=== PATIENT | male | born 1955 | race Caucasian/White ===

== ENCOUNTER 2019-11-29 17:24 | Inpatient (IN) | payer MEDICARE ==
[2019-11-29] MEDS ORDERED: METHYLPREDNISOLONE SOD SUCC 125 MG/2ML VIAL IV STA (17:39)
[2019-11-29] MEDS ORDERED: SODIUM CHLORIDE 0.9% 1000ML 1,000 ML IV STA (17:39)
[2019-11-29] MEDS ORDERED: ALBUTEROL/IPRATROPIUM 3 ML NEB NEB ONE (17:45)
[2019-11-29] MEDS ORDERED: CEFTRIAXONE SOD 1 GM/NS 50 ML 50 ML IV ONE (17:45)
[2019-11-29] MEDS ORDERED: AZITHROMYCIN 500MG/NS 250 ML 250 ML IV ONE (17:45)
--- NOTE | 2019-11-29 18:02 | NUR ---
requested Albuterol treatment from RT
[2019-11-29] MEDS ORDERED: SODIUM CHLORIDE 0.9% 1000ML 1,000 ML IV ONE (18:15)
[2019-11-29 18:27] LABS: ALANINE AMINOTRANSFERASE 18 IU/L (0-55); ALBUMIN 4.6 g/dL (3.5-5.0); ALBUMIN/GLOBULIN RATIO 1.4 (0.8-2.0); ALKALINE PHOSPHATASE 93 IU/L (40-150); ANION GAP 17.7 mmol/L (8-16); BLOOD UREA NITROGEN 11 mg/dL (7-26); BUN/CREATININE RATIO 13 (6-25); CALCIUM 9.4 mg/dL (8.4-10.2); CARBON DIOXIDE 24 mmol/L (22-29); CHLORIDE 101 mmol/L (98-107); CREATINE KINASE 98 IU/L (30-200); CREATININE, SERUM 0.82 mg/dL (0.72-1.25); EST GLOMERULAR FILTRATION RATE > 60 ML/MIN (60-); GLUCOSE 106 mg/dL (74-118); MAGNESIUM 1.9 MG/DL (1.3-2.1); POTASSIUM 3.7 mmol/L (3.5-5.1); SODIUM 139 mmol/L (136-145)
--- NOTE | 2019-11-29 18:27 | Diagnostic Imaging Report ---
Examination: Single AP view of the chest. COMPARISON: None. INDICATION: Shortness of breath today IMPRESSION: 1. Lines and Tubes: None 2. Mildly hyperinflated lungs. No consolidation or effusion. 3. Cardiomediastinal silhouette is normal. Pulmonary vasculature is normal. 4. No acute bony abnormalities. Signed by: Dr. Franklyn Herrera M.D. on 11/29/2019 6:24 PM
[2019-11-29 18:29] LABS: B-TYPE NATRIURETIC PEPTIDE2 19.4 pg/mL (0-100)
[2019-11-29 18:31] LABS: INR 0.94; PARTIAL THROMBOPLASTIN TIME 27.1 seconds (23.8-35.5); PROTHROMBIN TIME 13.1 seconds (11.9-14.5)
[2019-11-29 18:50] LABS: HEMOGLOBIN 16.8 g/dL (14.0-18.0); MEAN CORPUSCULAR VOLUME 96.1 fL (81-99)
[2019-11-29 18:51] LABS: BASOPHILS % 0.4 % (0.0-1.0); EOSINOPHILS % 1.4 % (0.0-6.0); LYMPHOCYTES % 10.2 % (18.0-39.1); MEAN CORPUSCULAR HEMOGLOBIN 32.9 pg (28-32); MEAN CORPUSCULAR HGB CONC 34.3 g/dL (31-35); MONOCYTES % 9.2 % (4.4-11.3); NEUTROPHILS % 78.6 % (38.7-80.0); PLATELET COUNT 190 x10e3/uL (140-360); RED CELL DISTRIBUTION WIDTH 12.5 % (11.7-14.4)
[2019-11-29 18:52] LABS: EOSINOPHILS # (AUTO) 0.1 (0.0-0.4); MONOCYTES # (AUTO) 0.9 (0.2-0.8); NEUTROPHILS # (AUTO) 7.5 (2.1-6.9)
--- NOTE | 2019-11-29 19:24 | Emergency Department Note ---
History of Present Illnes History of Present Illness Chief Complaint: Respiratory History of Present Illness This is a 64 year old male WHO SMOKES 2 PPD PRESENTS WITH SOB THAT STARTED THIS AM, DENIES COUGH, DENIES FEVER ARRIVES VIA EMS. PT STATES HE HAS NEVER BEEN DIAGNOSED WITH COPD. . 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 Arrival Mode: [facility] EMS Treatment LEADERSHIP INTERN: IV, O2, EKG, See EMS Report Onset (how long ago): hour(s) (8) Location: CHEST Quality: SOB Radiation: Reports non-radiation Severity: moderate Onset quality: gradual Duration (how long): hour(s) (8) Timing of current episode: constant Progression: worsening Chronicity: new Context: Denies recent illness, Denies recent surgery, Denies trauma/injury Relieving factors: none Exacerbating factors: movement Associated symptoms: Reports denies other symptoms Treatments prior to arrival: none Past Medical/Family History Physician Review I have reviewed the patient's past medical and family history. Any updates have been documented here. Past Medical History Recent Fever: No Clinical Suspicion of Infectio: No New/Unexplained Change in Ment: No Past Medical History: None Social History Smoking Cessation: Current every day smoker Alcohol Use: None Any Illegal Drug Use: No Family History Family history of heart diseas: No Review of Systems Review of Systems Constitutional: Reports no symptoms EENTM: Reports no symptoms Cardiovascular: Reports no symptoms Respiratory: Reports as per HPI Gastrointestinal: Reports no symptoms Genitourinary: Reports no symptoms Musculoskeletal: Reports no symptoms Integumentary: Reports no symptoms Neurological: Reports no symptoms Psychological: Reports no symptoms Endocrine: Reports no symptoms Hematological/Lymphatic: Reports no symptoms Physical Exam Related Data Allergies: Coded Allergies: No Known Allergies (Unverified , 11/29/19) Triage Vital Signs Vital Signs Date Time Temp Pulse Resp B/P (MAP) Pulse Ox O2 Delivery O2 Flow Rate FiO2 11/29/19 17:48 98.2 126 28 162/92 96 Mask 15.0 Vital signs reviewed: Yes Physical Exam CONSTITUTIONAL Constitutional: Present well-developed, Present well-nourished HENT HENT: Present normocephalic, Present atraumatic, Present oropharynx clear/moist, Present nose normal HENT L/R: Present left ext ear normal, Present right ext ear normal EYES Eyes: Reports PERRL, Reports conjunctivae normal NECK Neck: Present ROM normal PULMONARY Pulmonary: Present effort normal, Present respiratory distress (TACHYPNIC, ), Present other (WHEEZING IN ALL FOUR TORREZ, DECREASED BREATH SOUNS BILATERAL) CARDIOVASCULAR Cardiovascular: Present regular rhythm, Present heart sounds normal, Present capillary refill normal, Present tachycardia (124) GASTROINTESTINAL Abdominal: Present soft, Present nontender, Present bowel sounds normal GENITOURINARY Genitourinary: Present exam deferred SKIN Skin: Present warm, Present dry MUSCULOSKELETAL Musculoskeletal: Present ROM normal NEUROLOGICAL Neurological: Present alert, Present oriented x 3, Present no gross motor or sensory deficits PSYCHOLOGICAL Psychological: Present mood/affect normal, Present judgement normal Results Laboratory Result Diagram: 11/29/19 1742 11/29/19 1742 Laboratory Laboratory Tests Test 11/29/19 18:31 11/29/19 17:42 White Blood Count 9.57 x10e3/uL (4.8-10.8) Red Blood Count 5.10 x10e6/uL (4.3-5.7) Hemoglobin 16.8 g/dL (14.0-18.0) Hematocrit 49.0 % (38.2-49.6) Mean Corpuscular Volume 96.1 fL (81-99) Mean Corpuscular Hemoglobin 32.9 pg (28-32) Mean Corpuscular Hemoglobin Concent 34.3 g/dL (31-35) Red Cell Distribution Width 12.5 % (11.7-14.4) Platelet Count 190 x10e3/uL (140-360) Neutrophils (%) (Auto) 78.6 % (38.7-80.0) Lymphocytes (%) (Auto) 10.2 % (18.0-39.1) Monocytes (%) (Auto) 9.2 % (4.4-11.3) Eosinophils (%) (Auto) 1.4 % (0.0-6.0) Basophils (%) (Auto) 0.4 % (0.0-1.0) Neutrophils # (Auto) 7.5 (2.1-6.9) Lymphocytes # (Auto) 1.0 (1.0-3.2) Monocytes # (Auto) 0.9 (0.2-0.8) Eosinophils # (Auto) 0.1 (0.0-0.4) Basophils # (Auto) 0.0 (0.0-0.1) Absolute Immature Granulocyte (auto 0.02 x10e3/uL (0-0.1) Prothrombin Time 13.1 seconds (11.9-14.5) Prothromb Time International Ratio 0.94 Activated Partial Thromboplast Time 27.1 seconds (23.8-35.5) D-Dimer Quantitative (PE/DVT) 0.54 ug/mLFEU (0.00-0.45) Sodium Level 139 mmol/L (136-145) Potassium Level 3.7 mmol/L (3.5-5.1) Chloride Level 101 mmol/L (98-107) Carbon Dioxide Level 24 mmol/L (22-29) Anion Gap 17.7 mmol/L (8-16) Blood Urea Nitrogen 11 mg/dL (7-26) Creatinine 0.82 mg/dL (0.72-1.25) Estimat Glomerular Filtration Rate > 60 ML/MIN (60-) BUN/Creatinine Ratio 13 (6-25) Glucose Level 106 mg/dL (74-118) Lactic Acid Level 2.7 mmol/L (0.5-2.0) Calcium Level 9.4 mg/dL (8.4-10.2) Magnesium Level 1.9 MG/DL (1.3-2.1) Total Bilirubin 1.2 mg/dL (0.2-1.2) Aspartate Amino Transf (AST/SGOT) 28 IU/L (5-34) Alanine Aminotransferase (ALT/SGPT) 18 IU/L (0-55) Alkaline Phosphatase 93 IU/L (40-150) Creatine Kinase 98 IU/L (30-200) Creatine Kinase MB 1.60 ng/mL (0-5.0) Troponin I 0.009 ng/mL (0-0.300) B-Type Natriuretic Peptide 19.4 pg/mL (0-100) Total Protein 7.8 g/dL (6.5-8.1) Albumin 4.6 g/dL (3.5-5.0) Globulin 3.2 g/dL (2.3-3.5) Albumin/Globulin Ratio 1.4 (0.8-2.0) Lab results reviewed: Yes Imaging Imaging results reviewed: Yes Impressions Procedure: [id number] DX/CHEST SINGLE (PORTABLE) Exam Date: 11/29/19 Exam Time: 9907 REPORT STATUS: Signed Examination: Single AP view of the chest. COMPARISON: None. INDICATION: Shortness of breath today IMPRESSION: 1. Lines and Tubes: None 2. Mildly hyperinflated lungs. No consolidation or effusion. 3. Cardiomediastinal silhouette is normal. Pulmonary vasculature is normal. 4. No acute bony abnormalities. Signed by: Dr. Moody Herrera M.D. on 11/29/2019 6:24 PM Dictated By: MOODY HERRERA MD 23 Transcribed By: PAWAN on 11/29/191823 COPY TO: KEITH HERZOG MD~ Procedures 12 Lead ECG Interpretation ECG Interpretation : ECG: ECG 1 Assignment Officer: Interpreted by ED physician Date: Nov 29, 2019 Time: 18:00 Rhythm: sinus tachycardia Rate: tachycardia BPM: 122 QRS axis: normal ST segments normal: Yes T waves normal: Yes Q waves: V1, V2 Clinical Impression: abnormal ECG Assessment & Plan Medical Decision Making MDM PT WITH SOB, WHEEZING CBC, CMP, EKG, CXR, CARDIAC ENZYMES, LACTIC ACID BLOOD CULTURES ORDERED TO EVAL FOR PNEUMONIA, SEPSIS, PULMONARY EDEMA, MYOCARDIAL INFARCTION ROCEPHIN1 GRAM IV ORDERED\ ZITHROMAX 500 MG IV ORDERED INITIAL LACTIC 2.7 1 LITER NS IV BOLUS ORDERED REPEAT LACTIC 3.[address] RICHARD, PL[facility] IN [facility], REQUESTS CONSULT DR LIAO Reassessment Reassessment time: 19:24 Reassessment PT FEELS BETTER AFTER ALBUTEROL NEBS. STILL WITH WHEEZING AND DECREASED BREATH SOUNDS THROUGHOUT Assessment & Plan Final Impression: (1) COPD (chronic obstructive pulmonary disease) (2) Lactic acidosis Depart Disposition: ADMITTED Last Vital Signs Date Time Temp Pulse Resp B/P (MAP) Pulse Ox O2 Delivery O2 Flow Rate FiO2 11/29/19 18:43 114 22 154/85 98 Nasal Cannula 2.0 11/29/19 17:48 98.2 Medications in the ED Methylprednisolone Sodium Succinate 125 mg ONCE STAT IV Last administered on 11/29/19at 18:20; Admin Dose 125 MG; Start 11/29/19 at 17:39; Stop 11/29/19 at 17:42; Status DC Sodium Chloride 1,000 ml @ 0 mls/hr Q0M STAT IV Last administered on 11/29/19at 18:20; Admin Dose 125 MLS/HR; Start 11/29/19 at 17:39; Stop 11/29/19 at 17:42; Status DC Albuterol/ Ipratropium 3 ml ONCE ONCE NEB Last administered on 11/29/19at 18:30; Admin Dose 3 ML; Start 11/29/19 at 17:45; Stop 11/29/19 at 17:46; Status DC Ceftriaxone Sodium 50 ml @ 100 mls/hr ONCE ONCE IV Last administered on 11/29/19at 18:21; Admin Dose 100 MLS/HR; Start 11/29/19 at 17:45; Stop 11/29/19 at 18:14; Status DC Azithromycin 250 ml @ 200 mls/hr NOW ONCE IV Last administered on 11/29/19at 18:40; Admin Dose 200 MLS/HR; Start 11/29/19 at 17:45; Stop 11/29/19 at 18:59; Status DC Sodium Chloride 1,000 ml @ 0 mls/hr Q0M ONCE IV ; Start 11/29/19 at 18:15; Stop 11/29/19 at 18:20; Status DC CASSIE BONILLA MD Nov 29, 2019 19:24
[2019-11-29 20:05] LABS: CLARITY,URINE CLEAR (CLEAR); COLOR,URINE YELLOW (YELLOW); LEUKOCYTE ESTERASE ,URINE NEGATIVE (NEGATIVE); NITRITE,URINE NEGATIVE (NEGATIVE)
[2019-11-29 20:06] LABS: BILIRUBIN,URINE NEGATIVE (NEGATIVE); KETONES,URINE NEGATIVE (NEGATIVE); PROTEIN,URINE DIPSTICK NEGATIVE (NEGATIVE); URINE UROBILINOGEN 0.2 mg/dL (0.2 - 1)
--- OUTSIDE RECORDS SUMMARY | 2019-11-29 21:32 | XMS REPORT | Continuity of Care Document ---
Author Author [facility] Organization [facility] Address [address] [place] [address] Dr. Bashir [address] [place] [id number] Phone Unavailable Care Team Providers Care Teaching Music Lessons Name Role Phone Christopher HERZOG Attphys Unavailable Problems This patient has no known problems. Allergies, Adverse Reactions, Alerts This patient has no known allergies or adverse reactions. Medications This patient has no known medications. Procedures This patient has no known procedures. Results Test Description Test Time Test Comments Results Result Comments Source CHEST SINGLE (PORTABLE) 2019-11-29 18:23:00 [facility] [address] [place] [address] Patient Name: ADALGISA MARRUFO MR #: [id number] : 1955 Age/Sex: 64/M Req #: [id number] Adm Physician: Ordered by: KEITH HERZOG MD Report #: [id number] Location: ER Room/Bed: Procedure: [id number] DX/CHEST SINGLE (PORTABLE) Exam Date: 11/29/19 Exam Time: 1733 REPORT STATUS: Signed Examination: Single AP view of the chest. COMPARISON: None. INDICATION: Shortness of breath today IMPRESSION: 1. Lines and Tubes: None 2. Mildly hyperinflated lungs. No consolidation or effusion. 3. Cardiomediastinal silhouette is nor mal. Pulmonary vasculature is normal. 4. No acute bony abnormalities. Signed by: Dr. Moody Herrera M.D. on 11/29/2019 6:24 PM Dictated By: MOODY HERRERA MD 23 Transcribed By: PAWAN on 11/29/191823 COPY TO: KEITH HERZOG MD
[2019-11-29] MEDS: SODIUM CHLORIDE 0.9% 1000ML 1,000 ML IV SCH (22:03)
[2019-11-30] VITALS (10 sets, daily range): BP systolic 112–169; BP diastolic 67–97
[2019-11-30] MEDS: METHYLPREDNISOLONE SOD SUCC 40 MG/ML VIAL 1ML IV SCH ×4 (00:54→21:00)
[2019-11-30] MEDS: ALBUTEROL/IPRATROPIUM 3 ML NEB NEB SCH ×7 (01:40→23:01)
[2019-11-30] MEDS: SODIUM CHLORIDE 0.9% 1000ML 1,000 ML IV SCH (02:30)
[2019-11-30 02:42] LABS: CREATINE KINASE MB 4.4 ng/mL (0-5.0)
[2019-11-30 07:46] LABS: EOSINOPHILS % 0.2 % (0.0-6.0); HEMATOCRIT 42.6 % (38.2-49.6); HEMOGLOBIN 14.8 g/dL (14.0-18.0); LYMPHOCYTES # (AUTO) 0.3 (1.0-3.2); LYMPHOCYTES % 5.3 % (18.0-39.1); MEAN CORPUSCULAR HGB CONC 34.7 g/dL (31-35); MEAN CORPUSCULAR VOLUME 95.1 fL (81-99); MONOCYTES % 0.6 % (4.4-11.3); NEUTROPHILS # (AUTO) 6.1 (2.1-6.9); NEUTROPHILS % 93.7 % (38.7-80.0); PLATELET COUNT 185 x10e3/uL (140-360); RED BLOOD COUNT 4.48 x10e6/uL (4.3-5.7); RED CELL DISTRIBUTION WIDTH 12.8 % (11.7-14.4)
[2019-11-30 07:58] LABS: ANION GAP 11.9 mmol/L (8-16); BLOOD UREA NITROGEN 8 mg/dL (7-26); BUN/CREATININE RATIO 11 (6-25); CALCIUM 8.7 mg/dL (8.4-10.2); CARBON DIOXIDE 24 mmol/L (22-29); CHLORIDE 108 mmol/L (98-107); CREATININE, SERUM 0.73 mg/dL (0.72-1.25); EST GLOMERULAR FILTRATION RATE > 60 ML/MIN (60-); GLUCOSE 173 mg/dL (74-118); POTASSIUM 3.9 mmol/L (3.5-5.1); SODIUM 140 mmol/L (136-145)
[2019-11-30 09:20] LABS: LYMPHOCYTES % (MANUAL) 7 % (19-48); MONOCYTES % (MANUAL) 2 % (3.4-9.0); NEUTROPHILS % (MANUAL) 91 % (40-74); PLATELET ESTIMATE ADEQUATE; PLATELET MORPHOLOGY COMMENT NORMAL; RBC MORPHOLOGY COMMENT NORMAL
[2019-11-30] MEDS ORDERED: ZOLPIDEM TARTRATE 5 MG TAB PO PRN (09:30)
--- NOTE | 2019-11-30 11:03 | Diagnostic Imaging Report ---
EXAM: CT Chest WITHOUT intravenous contrast 11/30/2019 10:35 AM INDICATION: COPD, shortness of breath COMPARISON: Chest radiograph of 11/29/2019 TECHNIQUE: Chest was scanned utilizing a multidetector helical scanner from the lung apex through the level of the adrenal glands without administration of IV contrast. Coronal and sagittal reformations were obtained. Routine protocol was performed. IV CONTRAST: None RADIATION DOSE: Total DLP: 478 mGy*cm. Dose modulation, iterative reconstruction, and/or weight based adjustment of the mA/kV was utilized to reduce the radiation dose to as low as reasonably achievable. COMPLICATIONS: None FINDINGS: LINES/ TUBES: None. LUNGS AND AIRWAYS: The central airways are patent. Mild upper lobe predominant centrilobular emphysema. No focal consolidation or pulmonary edema. 5 mm left lower lobe calcified granuloma. 4 mm peripheral left lower lobe pulmonary nodule. PLEURA: The pleural spaces are clear. HEART AND MEDIASTINUM: The thyroid gland is normal. No mediastinal, hilar or axillary lymphadenopathy. The heart is normal in size.. There is no pericardial effusion. Scattered atherosclerotic calcifications of the thoracic aorta and coronary arteries. UPPER ABDOMEN: 1 cm right hepatic hypodensity and subcentimeter left hepatic hypodensity, likely cysts. No acute findings in the upper abdomen. BONES: No acute osseous injury. No suspicious lytic or blastic lesions. SOFT TISSUES: Unremarkable. IMPRESSION: No focal pneumonia or pulmonary edema. Mild upper lobe predominant centrilobular emphysema. 4 mm peripheral left lower lobe pulmonary nodule. If the patient is low risk, no further imaging follow-up is required. If the patient is high risk, chest CT at 12 months is optional. Signed by: Matthew Sandhu MD on 11/30/2019 10:59 AM
--- NOTE | 2019-11-30 11:56 | Consultation ---
DATE OF CONSULTATION: Pulmonary Critical Care Consultation CHIEF COMPLAINT: Dyspnea and cough. HISTORY OF PRESENT ILLNESS: The patient is a 64-year-old man. He is a lifelong smoker. He had an episode of bronchitis in February of this year. He received some inhalers. He now complains of recurrent cough and dyspnea. He went to an urgent care and was subsequently referred to the ER. He was found to have wheezing and dyspnea. He received Solu-Medrol and nebulizers with some improvement. PAST MEDICAL HISTORY: 1. No prior heart disease. 2. No prior documented COPD, although the patient does have an inhaler that he uses at home. SOCIAL HISTORY: The patient is a lifelong smoker. He is not a drinker. FAMILY HISTORY: Noncontributory. ALLERGIES: NO KNOWN DRUG ALLERGIES. PHYSICAL EXAMINATION: VITAL SIGNS: The patient is afebrile. HEENT: Shows no facial swelling or erythema. LYMPHATIC: Shows no submandibular, cervical, or supraclavicular adenopathy. CARDIAC: Reveals regular rate and rhythm with normal S1 and S2. LUNGS: Auscultation of lungs reveals a prolonged expiratory phase bilaterally. There is some wheezing. There are few crackles at the bases. ABDOMEN: Soft and nontender. There is no rebound or guarding. EXTREMITIES: Show no leg edema or calf tenderness. There is no cyanosis or clubbing. SKIN: Shows no rashes. NEUROLOGICAL: Shows no focal abnormalities. LABORATORY DATA: White blood cell count is 6.4 and hemoglobin is 14.8. The platelet count is 185. The BUN to creatinine ratio is 8 to 0.73 and the other electrolytes are within normal limits. The lactic acid is 2. RADIOGRAPHIC DATA: The patient has hyperinflated lung garcia. IMPRESSION: 1. Chronic obstructive pulmonary disease with acute exacerbation, present on admission. 2. Mild protein-calorie malnutrition. PLAN: 1. Begin Symbicort twice daily. The patient should also continue nebulizer treatments. 2. Taper Solu-Medrol. 3. Antibiotics. 4. CT scan of chest. 5. Smoking cessation. 6. Nutritional counseling to avoid weight loss. MD GEORGE Vera/LUIS /[id number]
[2019-11-30] MEDS: BUDESONIDE/FORMOTEROL 160/4.5MCG INHALER INH SCH (19:40)
[2019-11-30] MEDS ORDERED: CEFTRIAXONE SOD 1 GM/NS 50 ML 50 ML IV ONE (20:48)
[2019-11-30] MEDS ORDERED: CEFTRIAXONE SOD 1 GM VIAL IV SCH (21:00)
[2019-11-30] MEDS ORDERED: AZITHROMYCIN 250 MG TAB PO SCH (21:00)
[2019-12-01] VITALS: BP 126/68
[2019-12-01] MEDS: ALBUTEROL/IPRATROPIUM 3 ML NEB NEB SCH ×4 (03:30→15:50)
[2019-12-01 04:00] VITALS: BP 113/58
[2019-12-01 05:39] LABS: BASOPHILS % 0.1 % (0.0-1.0); HEMATOCRIT 38.7 % (38.2-49.6); HEMOGLOBIN 13.8 g/dL (14.0-18.0); LYMPHOCYTES # (AUTO) 0.4 (1.0-3.2); LYMPHOCYTES % 4.5 % (18.0-39.1); MEAN CORPUSCULAR HEMOGLOBIN 34.7 pg (28-32); MEAN CORPUSCULAR HGB CONC 35.7 g/dL (31-35); MEAN CORPUSCULAR VOLUME 97.2 fL (81-99); MONOCYTES # (AUTO) 0.2 (0.2-0.8); MONOCYTES % 2.2 % (4.4-11.3); NEUTROPHILS # (AUTO) 8.9 (2.1-6.9); NEUTROPHILS % 92.9 % (38.7-80.0); PLATELET COUNT 156 x10e3/uL (140-360); RED BLOOD COUNT 3.98 x10e6/uL (4.3-5.7); RED CELL DISTRIBUTION WIDTH 13.2 % (11.7-14.4)
[2019-12-01 06:11] LABS: ANION GAP 11.2 mmol/L (8-16); BLOOD UREA NITROGEN 12 mg/dL (7-26); BUN/CREATININE RATIO 16 (6-25); CALCIUM 8.8 mg/dL (8.4-10.2); CARBON DIOXIDE 24 mmol/L (22-29); CHLORIDE 108 mmol/L (98-107); CREATININE, SERUM 0.76 mg/dL (0.72-1.25); EST GLOMERULAR FILTRATION RATE > 60 ML/MIN (60-); GLUCOSE 151 mg/dL (74-118); POTASSIUM 4.2 mmol/L (3.5-5.1); SODIUM 139 mmol/L (136-145)
[2019-12-01 07:25] VITALS: BP 128/86
[2019-12-01 07:26] VITALS: BP 128/86
[2019-12-01] MEDS: BUDESONIDE/FORMOTEROL 160/4.5MCG INHALER INH SCH (07:26)
[2019-12-01] MEDS: METHYLPREDNISOLONE SOD SUCC 40 MG/ML VIAL 1ML IV SCH (08:02)
[2019-12-01 08:13] LABS: ANISOCYTOSIS SLIGHT; LYMPHOCYTES % (MANUAL) 6 % (19-48); MONOCYTES % (MANUAL) 4 % (3.4-9.0); NEUTROPHILS % (MANUAL) 90 % (40-74); PLATELET ESTIMATE ADEQUATE; PLATELET MORPHOLOGY COMMENT NORMAL; RBC MORPHOLOGY COMMENT ABNORMAL
[2019-12-01] MEDS ORDERED: FAMOTIDINE 20 MG TAB PO SCH (09:00)
--- NOTE | 2019-12-01 10:15 | NUR ---
RECEIVED PT FROM [facility]. PT'S VITALS WNL. PT DENIES NEEDS AT THIS TIME.
[2019-12-01 12:43] VITALS: BP 123/99
--- NOTE | 2019-12-01 14:52 | Progress Note ---
DATE: SUBJECTIVE: The patient feels better. He has less dyspnea and less cough. PHYSICAL EXAMINATION: VITAL SIGNS: The patient is afebrile. The vital signs are stable. The blood pressure is 123/99, saturation is 94% on 2 L and the pulse is 71. HEENT: Shows no facial swelling or erythema. LYMPHATIC: Shows no submandibular, cervical, or supraclavicular adenopathy. CARDIAC: Reveals regular rate and rhythm with normal S1, S2. LUNGS: Auscultation of lungs reveals rhonchorous breath sounds bilaterally. There is no wheezing. ABDOMEN: Soft and nontender. There is no rebound or guarding. EXTREMITIES: Shows no leg edema or calf tenderness. There is no cyanosis or clubbing. SKIN: Shows no rashes. NEUROLOGICAL: Shows no focal abnormalities. RADIOGRAPHIC DATA: Chest CT shows centrilobular emphysema, there is 4 mm peripheral nodule. IMPRESSION: 1. Chronic obstructive pulmonary disease with acute exacerbation, present on admission. 2. Solitary pulmonary nodule, measuring 4 mm. 3. Mild protein-calorie malnutrition. PLAN: 1. The patient can be discharged home. 2. He should have a maintenance inhaler twice a day along with a rescue inhaler and a nebulizer. 3. Smoking cessation. 4. He will need a repeat CT scan again in one year to follow the nodule. 5. The patient should follow up in 1 to 2 weeks. Jarocho Calloway MD LM/MODL /[id number]
[2019-12-01 16:34] VITALS: BP 153/73
[2019-12-01] MEDS ORDERED: ALBUTEROL S5 MG/1 ML NEB (17:21)
[2019-12-01] MEDS ORDERED: DOXYCYCLINE MO100 MG PO (17:21)
[2019-12-01] MEDS ORDERED: SYMBICORT 16010.2 GM IH (17:21)
--- NOTE | 2019-12-01 17:53 | Discharge Summary ---
PRIMARY CARE PHYSICIAN: The patient does not have a primary care physician. ADMITTING DIAGNOSES: 1. Acute exacerbation of chronic obstructive pulmonary disease. 2. Lactic acidosis. DISCHARGE DIAGNOSES: 1. Acute exacerbation of chronic obstructive pulmonary disease. 2. Lactic acidosis. BRIEF HISTORY: Mr. Winters is a 64-year-old gentleman presenting with shortness of breath and wheezing and elevated lactic acid level with no other evidence of sepsis. HOSPITAL COURSE: The patient was admitted to the floor, started on Zithromax and Rocephin along with Solu-Medrol and neb treatments. The patient improved overnight, was having good O2 sats 94% on room air, was ambulating in the hallway. Still had some end expiratory wheezing with forced expiration and a hacking cough. The patient was discharged home to continue with Symbicort two puffs q.12 hours, albuterol HFA as a rescue inhaler two puffs q.4 hours as needed. He was given a script for nebulizer, albuterol solution for the nebulizer as well as Nicoderm patches and doxycycline 100 mg twice daily. He will follow up with Dr. Calloway, Pulmonology within two weeks. MD SUSANA Leblanc/LUIS /[id number]
== END 2019-12-01 17:53 | disposition home or self-care (01) | DRG 191 ==
LOC: ER 17:54 → ERHOLD 21:27 → IMCU 11-30 01:37 → OBSVTOIN 11-30 13:35 → MED/SURG 12-01 10:15
PROVIDERS: ADMIT Internal Medicine; ATTEND Internal Medicine
DX: J44.1 Chronic obstructive pulmonary disease with (acute) exacerbation (principal); E87.2 Acidosis; E44.1 Mild protein-calorie malnutrition; F17.210 Nicotine dependence, cigarettes, uncomplicated; R91.1 Solitary pulmonary nodule; Z11.59 Encounter for screening for other viral diseases
CPT/HCPCS: 36415; 71045; 71250; 80048; 80053; 81001; 82103; 82550; 82553; 83605; 83735; 83880; 84484; 85025; 85379; 85610; 85730; 87040; 87086; 93306; 94640; 99284; G0378; J0456; J0696; J2920; J2930; J7030

== ENCOUNTER → 2021-01-30 | Outpatient (CLI) | payer MEDICARE ==
[~2021-01-30] MED LIST: ALBUTEROL S5 MG/1 ML NEB; DOXYCYCLINE MO100 MG PO; SYMBICORT 16010.2 GM IH
== END ==
LOC: CT 09:32
PROVIDERS: ATTEND Internal Medicine
DX: R91.1 Solitary pulmonary nodule (principal)
CPT/HCPCS: 71250

== ENCOUNTER 2022-02-15 01:06 | Inpatient (IN) | payer MEDICARE ==
[~2022-02-15] VITALS: Ht 177.8 cm; Wt 70.3 kg
[2022-02-15] VITALS (7 sets, daily range): BP systolic 122–153; BP diastolic 67–77
[2022-02-15 02:02] LABS: BASOPHILS % 0.5 % (0.0-1.0); EOSINOPHILS # (AUTO) 0.1 (0.0-0.4); EOSINOPHILS % 0.9 % (0.0-6.0); HEMATOCRIT 44.8 % (38.2-49.6); HEMOGLOBIN 14.9 g/dL (14.0-18.0); LYMPHOCYTES # (AUTO) 0.7 (1.0-3.2); LYMPHOCYTES % 9.6 % (18.0-39.1); MEAN CORPUSCULAR HEMOGLOBIN 32.3 pg (28-32); MEAN CORPUSCULAR HGB CONC 33.3 g/dL (31-35); MEAN CORPUSCULAR VOLUME 97.2 fL (81-99); MONOCYTES # (AUTO) 0.6 (0.2-0.8); MONOCYTES % 7.6 % (4.4-11.3); NEUTROPHILS # (AUTO) 6.2 (2.1-6.9); NEUTROPHILS % 81.1 % (38.7-80.0); PLATELET COUNT 201 x10e3/uL (140-360); RED BLOOD COUNT 4.61 x10e6/uL (4.3-5.7); RED CELL DISTRIBUTION WIDTH 12.3 % (11.7-14.4)
[2022-02-15 02:07] LABS: ALBUMIN/GLOBULIN RATIO 1.1 (0.8-2.0); ANION GAP 15.5 mmol/L (8-16); CREATININE, SERUM 0.77 mg/dL (0.72-1.25); POTASSIUM 3.5 mmol/L (3.5-5.1)
[2022-02-15] MEDS ORDERED: ALBUTEROL SULF 0.083% NEB SOLN 3 ML NEB NEB STA (03:29)
[2022-02-15] MEDS ORDERED: IPRATROPIUM BROMIDE 0.02% 2.5 ML NEB NEB ONE (03:30)
[2022-02-15] MEDS: METHYLPREDNISOLONE SOD SUCC 125 MG/2ML VIAL IV SCH ×3 (06:06→22:09)
[2022-02-15] MEDS: ALBUTEROL/IPRATROPIUM 3 ML NEB NEB SCH ×5 (07:38→22:17)
[2022-02-15] MEDS ORDERED: SODIUM CHLORIDE 0.9% 250ML 250 ML ONE (08:51)
[2022-02-15] MEDS: BUDESONIDE/FORMOTEROL 160/4.5MCG INHALER INH SCH ×2 (09:00→19:47)
[2022-02-16] MEDS: ALBUTEROL/IPRATROPIUM 3 ML NEB NEB SCH ×6 (02:24→23:10)
[2022-02-16 06:08] LABS: BASOPHILS % 0.1 % (0.0-1.0); HEMATOCRIT 41.2 % (38.2-49.6); HEMOGLOBIN 14.2 g/dL (14.0-18.0); LYMPHOCYTES # (AUTO) 0.4 (1.0-3.2); LYMPHOCYTES % 4.5 % (18.0-39.1); MEAN CORPUSCULAR HEMOGLOBIN 31.6 pg (28-32); MEAN CORPUSCULAR HGB CONC 34.5 g/dL (31-35); MEAN CORPUSCULAR VOLUME 91.8 fL (81-99); MONOCYTES # (AUTO) 0.3 (0.2-0.8); NEUTROPHILS # (AUTO) 8.3 (2.1-6.9); NEUTROPHILS % 91.7 % (38.7-80.0); PLATELET COUNT 215 x10e3/uL (140-360); RED BLOOD COUNT 4.49 x10e6/uL (4.3-5.7); RED CELL DISTRIBUTION WIDTH 12.9 % (11.7-14.4)
[2022-02-16] MEDS: METHYLPREDNISOLONE SOD SUCC 125 MG/2ML VIAL IV SCH ×3 (06:12→21:36)
[2022-02-16 06:41] LABS: ANION GAP 13.6 mmol/L (8-16); CALCIUM 9.4 mg/dL (8.4-10.2); CREATININE, SERUM 0.76 mg/dL (0.72-1.25); POTASSIUM 3.6 mmol/L (3.5-5.1)
[2022-02-16] MEDS: BUDESONIDE/FORMOTEROL 160/4.5MCG INHALER INH SCH ×2 (07:20→19:35)
[2022-02-16 08:22] VITALS: BP 116/69
[2022-02-16 11:38] VITALS: BP 126/72
[2022-02-16 16:04] VITALS: BP 132/67
[2022-02-16 20:00] VITALS: BP_SYST 132; BP_SYST 139; BP_DIAS 67; BP_DIAS 77
[2022-02-17] VITALS: BP 151/96
[2022-02-17] MEDS: ALBUTEROL/IPRATROPIUM 3 ML NEB NEB SCH ×3 (03:30→09:52)
[2022-02-17] MEDS: METHYLPREDNISOLONE SOD SUCC 125 MG/2ML VIAL IV SCH (05:30)
[2022-02-17] MEDS: BUDESONIDE/FORMOTEROL 160/4.5MCG INHALER INH SCH (07:25)
[2022-02-17 08:03] VITALS: BP 135/77
[2022-02-17 09:23] VITALS: BP 135/77
[2022-02-17] MEDS ORDERED: PREDNISONE20 MG PO (10:14)
[2022-02-17] MEDS ORDERED: LEVOFLOXACIN250 MG PO (10:14)
[2022-02-17 11:30] VITALS: BP 140/76
== END 2022-02-17 12:05 | disposition home or self-care (01) | DRG 192 ==
LOC: ER 01:25 → OBSVTOIN 03:32 → ERHOLD 03:32 → MED/SURG3 05:14
PROVIDERS: ADMIT Internal Medicine; ATTEND Internal Medicine
DX: J44.1 Chronic obstructive pulmonary disease with (acute) exacerbation (principal); R09.02 Hypoxemia; I10 Essential (primary) hypertension
CPT/HCPCS: 36415; 71045; 80048; 80053; 83880; 84484; 85025; 93005; 94640; 94664; 94799; 99284; J0696; J2930; J7050

== ENCOUNTER → 2022-06-10 | Day surgery (SDC) | payer MEDICARE ==
[2022-06-03 10:04] LABS: BASOPHILS # (AUTO) 0.1 (0.0-0.1); BASOPHILS % 0.7 % (0.0-1.0); EOSINOPHILS # (AUTO) 0.3 (0.0-0.4); HEMATOCRIT 41.8 % (38.2-49.6); HEMOGLOBIN 14.3 g/dL (14.0-18.0); LYMPHOCYTES % 14.3 % (18.0-39.1); MEAN CORPUSCULAR HEMOGLOBIN 31.2 pg (28-32); MEAN CORPUSCULAR HGB CONC 34.2 g/dL (31-35); MEAN CORPUSCULAR VOLUME 91.3 fL (81-99); MONOCYTES # (AUTO) 0.5 (0.2-0.8); MONOCYTES % 7.1 % (4.4-11.3); NEUTROPHILS % 73.6 % (38.7-80.0); PLATELET COUNT 255 x10e3/uL (140-360); RED BLOOD COUNT 4.58 x10e6/uL (4.3-5.7); RED CELL DISTRIBUTION WIDTH 12.9 % (11.7-14.4)
[~2022-06-10] MED LIST changes: +ATORVASTATIN CA20 MG PO; +FENTANYL CITRATE/PF 100MCG/2 ML INJ ONE; +HYOSCYAMINE SULFATE 0.5 MG/ML INJ ONE; +LACTATED RINGER'S 1,000 ML ONE; +LEVOFLOXACIN250 MG PO; +LIDOCAINE HCL 2% LOCAL INJ 5 ML SDV VIAL INJ ONE; +POVIDONE IODINE 0.05% 0.05 % ML PO ONE; +PREDNISONE20 MG PO; +PROPOFOL IV EMULSION 10 MG/ML 20 ML VIAL ONE
[2022-06-10 13:15] VITALS: BP 106/69
== END | disposition home or self-care (01) ==
LOC: OR 08:44
PROVIDERS: ATTEND Internal Medicine Gastroenterology
DX: C18.7 Malignant neoplasm of sigmoid colon (principal); D12.8 Benign neoplasm of rectum; K64.8 Other hemorrhoids; Z71.3 Dietary counseling and surveillance; J44.9 Chronic obstructive pulmonary disease, unspecified; E78.00 Pure hypercholesterolemia, unspecified; R03.0 Elevated blood-pressure reading, without diagnosis of hypertension; Z71.89 Other specified counseling; F17.210 Nicotine dependence, cigarettes, uncomplicated; Z71.6 Tobacco abuse counseling; Z01.810 Encounter for preprocedural cardiovascular examination; Z01.812 Encounter for preprocedural laboratory examination; Z79.899 Other long term (current) drug therapy
CPT/HCPCS: 36415; 45380; 45385; 85025; 88305; 93005; J1980; J2001; J2704; J3010; J7121; 45378

== ENCOUNTER → 2022-06-11 | Outpatient (CLI) | payer MEDICARE ==
[~2022-06-11] MED LIST changes: +DIATRIZOATE MEGL/DIATRIZOA SOD 30 ML BTL PO ONE; -FENTANYL CITRATE/PF 100MCG/2 ML INJ ONE; -HYOSCYAMINE SULFATE 0.5 MG/ML INJ ONE; +IOPAMIDOL 610MG/1ML 300 MG/ML VIAL IV ONE; -LACTATED RINGER'S 1,000 ML ONE; -LIDOCAINE HCL 2% LOCAL INJ 5 ML SDV VIAL INJ ONE; -POVIDONE IODINE 0.05% 0.05 % ML PO ONE; -PROPOFOL IV EMULSION 10 MG/ML 20 ML VIAL ONE
[2022-06-11 13:20] LABS: CREATININE, SERUM 0.91 mg/dL (0.72-1.25)
== END ==
LOC: CT 12:28
PROVIDERS: ATTEND Internal Medicine Gastroenterology
DX: K63.89 Other specified diseases of intestine (principal)
CPT/HCPCS: 36415; 74177; 82565; 84520; Q9963; Q9967

== ENCOUNTER 2022-07-15 09:00 | Inpatient (IN) | payer MEDICARE ==
[2022-07-12 10:19] LABS: BASOPHILS # (AUTO) 0.1 (0.0-0.1); BASOPHILS % 0.9 % (0.0-1.0); EOSINOPHILS # (AUTO) 0.2 (0.0-0.4); EOSINOPHILS % 2.6 % (0.0-6.0); HEMATOCRIT 44.5 % (38.2-49.6); LYMPHOCYTES # (AUTO) 0.9 (1.0-3.2); LYMPHOCYTES % 14.8 % (18.0-39.1); MEAN CORPUSCULAR HEMOGLOBIN 31.7 pg (28-32); MEAN CORPUSCULAR HGB CONC 33.7 g/dL (31-35); MEAN CORPUSCULAR VOLUME 94.1 fL (81-99); MONOCYTES # (AUTO) 0.5 (0.2-0.8); MONOCYTES % 8.2 % (4.4-11.3); NEUTROPHILS # (AUTO) 4.2 (2.1-6.9); NEUTROPHILS % 71.8 % (38.7-80.0); PLATELET COUNT 193 x10e3/uL (140-360); RED BLOOD COUNT 4.73 x10e6/uL (4.3-5.7); RED CELL DISTRIBUTION WIDTH 13.2 % (11.7-14.4)
[2022-07-12 10:38] LABS: ALBUMIN/GLOBULIN RATIO 1.3 (0.8-2.0); ANION GAP 10.9 mmol/L (8-16); CALCIUM 9.2 mg/dL (8.4-10.2); CREATININE, SERUM 0.81 mg/dL (0.72-1.25); POTASSIUM 3.9 mmol/L (3.5-5.1)
[2022-07-15] VITALS (20 sets, daily range): BP systolic 139–159; BP diastolic 66–89; PULSE 67–84; RESP 8–21; TEMP 98.5–100.1; O2SAT 91–98
[~2022-07-15] VITALS: Ht 177.8 cm; Wt 68.0 kg
[~2022-07-15 09:00] MED LIST changes: -DIATRIZOATE MEGL/DIATRIZOA SOD 30 ML BTL PO ONE; -IOPAMIDOL 610MG/1ML 300 MG/ML VIAL IV ONE; +LACTATED RINGER'S 1,000 ML ONE
[2022-07-15] MEDS ORDERED: ROPIVACAINE 246.25 MG, EPINEPHRINE HCL 1:1000 1ML 0.5 MG, CLONIDINE HCL 0.08 MG, KETORO... INJ ONE ×5 (09:30)
[2022-07-15] MEDS ORDERED: MINERAL OIL STERILE 10ML VIAL ONE (09:49)
[2022-07-15] MEDS ORDERED: ACETAMINOPHEN 1000 MG/100 ML 100 ML IV ONE (09:53)
[2022-07-15] MEDS ORDERED: SUGAMMADEX SODIUM 200 MG/2 ML VIAL IV ONE (10:02)
[2022-07-15] MEDS ORDERED: FENTANYL CITRATE/PF 100MCG/2 ML INJ ONE ×2 (11:34→13:41)
[2022-07-15] MEDS ORDERED: KETOROLAC TROMETHAMINE 30 MG/ML VIAL ONE (12:22)
[2022-07-15] MEDS ORDERED: DEXAMETHASONE SOD PHOS INJ 4 MG/ML SDV ONE (12:22)
[2022-07-15] MEDS ORDERED: LIDOCAINE HCL 2% LOCAL INJ 5 ML SDV VIAL INJ ONE (12:22)
[2022-07-15] MEDS ORDERED: PROPOFOL IV EMULSION 10 MG/ML 20 ML VIAL ONE (12:22)
[2022-07-15] MEDS ORDERED: NEOSTIGMINE 1 MG/ML 10ML VIAL ONE (12:22)
[2022-07-15] MEDS ORDERED: GLYCOPYRROLATE INJ 0.2 MG/ML VIAL ONE (12:22)
[2022-07-15] MEDS ORDERED: SEVOFLURANE INHAL SOLN 250 ML PEN BTL ONE (12:22)
[2022-07-15] MEDS ORDERED: ROCURONIUM BROMIDE 10 MG/ML 5ML VIAL IV ONE (12:22)
[2022-07-15] MEDS ORDERED: POVIDONE IODINE 0.05% 0.05 % ML PO ONE (12:22)
[2022-07-15] MEDS ORDERED: ONDANSETRON HCL INJ 2MG/ML 2ML 2 MG/ML VIAL ONE (12:22)
[2022-07-15] MEDS ORDERED: ROPIVACAINE 0.5% 5 MG/ML 30 ML SDV ONE (12:59)
[2022-07-15] MEDS ORDERED: FENTANYL CITRATE/PF 100MCG/2 ML INJ IV ONE (13:42)
[2022-07-15] MEDS ORDERED: ONDANSETRON HCL INJ 2MG/ML 2ML 2 MG/ML VIAL IV PRN (13:45)
[2022-07-15] MEDS ORDERED: HYDROMORPHONE 1MG/1ML INJ IV ONE (14:05)
[2022-07-15] MEDS ORDERED: HYDRALAZINE HCL 20 MG/ML VIAL ONE (14:30)
[2022-07-15] MEDS ORDERED: HYDRALAZINE HCL 20 MG/ML VIAL IV ONE (14:31)
[2022-07-15] MEDS: SODIUM CHLORIDE 0.9% 1000ML 1,000 ML IV SCH (16:38)
[2022-07-15] MEDS: ACETAMINOPHEN 1000 MG/100 ML IV PRN ×2 (16:38→17:09)
[2022-07-15] MEDS: HYDROMORPHONE 1MG/1ML INJ IV PRN ×4 (16:38→20:51)
[2022-07-15] MEDS: SODIUM CHLORIDE 0.9% 250ML IRRIG IR SCH ×2 (16:52→21:44)
[2022-07-16] VITALS (48 sets, daily range): BP systolic 114–172; BP diastolic 59–114; PULSE 60–88; RESP 9–21; TEMP 98.1–100; O2SAT 89–98
[2022-07-16] MEDS: HYDROMORPHONE 1MG/1ML INJ IV PRN ×4 (00:24→22:32)
[2022-07-16] MEDS: ACETAMINOPHEN 1000 MG/100 ML IV PRN (01:34)
[2022-07-16] MEDS: SODIUM CHLORIDE 0.9% 250ML IRRIG IR SCH ×7 (01:48→21:34)
[2022-07-16] MEDS: SODIUM CHLORIDE 0.9% 1000ML 1,000 ML IV SCH ×2 (03:38→15:32)
[2022-07-16] MEDS: ALBUTEROL/IPRATROPIUM 3 ML NEB NEB PRN ×3 (07:35→19:25)
[2022-07-16 09:31] LABS: HEMATOCRIT 42.4 % (38.2-49.6); HEMOGLOBIN 14.1 g/dL (14.0-18.0); LYMPHOCYTES # (AUTO) 0.7 (1.0-3.2); LYMPHOCYTES % 6.8 % (18.0-39.1); MEAN CORPUSCULAR HEMOGLOBIN 31.5 pg (28-32); MEAN CORPUSCULAR HGB CONC 33.3 g/dL (31-35); MEAN CORPUSCULAR VOLUME 94.6 fL (81-99); MONOCYTES # (AUTO) 0.9 (0.2-0.8); MONOCYTES % 8.6 % (4.4-11.3); NEUTROPHILS # (AUTO) 8.3 (2.1-6.9); NEUTROPHILS % 84.3 % (38.7-80.0); PLATELET COUNT 167 x10e3/uL (140-360); RED BLOOD COUNT 4.48 x10e6/uL (4.3-5.7); RED CELL DISTRIBUTION WIDTH 13.6 % (11.7-14.4)
[2022-07-16 09:53] LABS: ANION GAP 13.4 mmol/L (8-16); CALCIUM 8.6 mg/dL (8.4-10.2); CREATININE, SERUM 0.83 mg/dL (0.72-1.25); POTASSIUM 4.4 mmol/L (3.5-5.1)
[2022-07-17] VITALS (22 sets, daily range): BP systolic 135–176; BP diastolic 77–105; PULSE 71–117; RESP 13–23; TEMP 97.7–101.1; O2SAT 91–98
[2022-07-17] MEDS: SODIUM CHLORIDE 0.9% 250ML IRRIG IR SCH ×6 (01:45→21:16)
[2022-07-17] MEDS: SODIUM CHLORIDE 0.9% 1000ML 1,000 ML IV SCH ×3 (03:48→18:38)
[2022-07-17] MEDS: HYDRALAZINE HCL 20 MG/ML VIAL IV PRN ×2 (06:47→16:09)
[2022-07-17] MEDS: ALBUTEROL/IPRATROPIUM 3 ML NEB NEB PRN ×2 (07:23→18:22)
[2022-07-17] MEDS: NICOTINE 21 MG/EA PATCH TOP SCH (10:40)
[2022-07-17 12:11] LABS: BASOPHILS % 0.4 % (0.0-1.0); EOSINOPHILS % 0.1 % (0.0-6.0); HEMATOCRIT 45.7 % (38.2-49.6); HEMOGLOBIN 15.5 g/dL (14.0-18.0); LYMPHOCYTES # (AUTO) 0.9 (1.0-3.2); LYMPHOCYTES % 8.7 % (18.0-39.1); MEAN CORPUSCULAR HEMOGLOBIN 31.6 pg (28-32); MEAN CORPUSCULAR HGB CONC 33.9 g/dL (31-35); MEAN CORPUSCULAR VOLUME 93.1 fL (81-99); MONOCYTES # (AUTO) 0.8 (0.2-0.8); MONOCYTES % 8.3 % (4.4-11.3); NEUTROPHILS # (AUTO) 8.2 (2.1-6.9); PLATELET COUNT 189 x10e3/uL (140-360); RED BLOOD COUNT 4.91 x10e6/uL (4.3-5.7); RED CELL DISTRIBUTION WIDTH 13.2 % (11.7-14.4)
[2022-07-17 12:32] LABS: ANION GAP 18.7 mmol/L (8-16); CREATININE, SERUM 0.7 mg/dL (0.72-1.25); POTASSIUM 3.7 mmol/L (3.5-5.1)
[2022-07-17] MEDS ORDERED: ACETAMINOPHEN 325 MG SUPP PR PRN (16:15)
[2022-07-17] MEDS ORDERED: KETOROLAC TROMETHAMINE 30 MG/ML VIAL IM PRN (16:45)
[2022-07-17] MEDS ORDERED: HYDRALAZINE HCL 20 MG/ML VIAL IV PRN (19:30)
[2022-07-17] MEDS ORDERED: DEXTROSE 5%/0.45% SOD CHL 1,000 ML IV ONE (20:00)
[2022-07-18] VITALS (29 sets, daily range): BP systolic 121–162; BP diastolic 65–113; PULSE 70–101; RESP 13–24; TEMP 97.5–98.6; O2SAT 90–97
[2022-07-18] MEDS: SODIUM CHLORIDE 0.9% 250ML IRRIG IR SCH ×3 (01:45→08:41)
[2022-07-18 06:41] LABS: BASOPHILS % 0.2 % (0.0-1.0); EOSINOPHILS # (AUTO) 0.1 (0.0-0.4); EOSINOPHILS % 0.8 % (0.0-6.0); LYMPHOCYTES # (AUTO) 0.8 (1.0-3.2); LYMPHOCYTES % 12.3 % (18.0-39.1); MEAN CORPUSCULAR HEMOGLOBIN 31.7 pg (28-32); MEAN CORPUSCULAR VOLUME 90.7 fL (81-99); MONOCYTES # (AUTO) 0.6 (0.2-0.8); NEUTROPHILS # (AUTO) 4.9 (2.1-6.9); NEUTROPHILS % 76.4 % (38.7-80.0); PLATELET COUNT 150 x10e3/uL (140-360); RED BLOOD COUNT 4.41 x10e6/uL (4.3-5.7); RED CELL DISTRIBUTION WIDTH 12.9 % (11.7-14.4)
[2022-07-18 07:03] LABS: ANION GAP 13.5 mmol/L (8-16); CALCIUM 8.6 mg/dL (8.4-10.2); CREATININE, SERUM 0.74 mg/dL (0.72-1.25); POTASSIUM 3.5 mmol/L (3.5-5.1)
[2022-07-18] MEDS: ALBUTEROL/IPRATROPIUM 3 ML NEB NEB PRN ×4 (08:29→19:25)
[2022-07-18] MEDS: NICOTINE 21 MG/EA PATCH TOP SCH (08:55)
[2022-07-18] MEDS: SODIUM CHLORIDE 0.9% 1000ML 1,000 ML IV SCH (09:55)
[2022-07-19] VITALS (21 sets, daily range): BP systolic 131–163; BP diastolic 68–109; PULSE 78–122; RESP 14–27; TEMP 98.2–98.8; O2SAT 89–97
[2022-07-19] MEDS: SODIUM CHLORIDE 0.9% 1000ML 1,000 ML IV SCH (05:18)
[2022-07-19] MEDS: NICOTINE 21 MG/EA PATCH TOP SCH (08:23)
[2022-07-19] MEDS: ALBUTEROL/IPRATROPIUM 3 ML NEB NEB PRN ×2 (08:40→17:39)
[2022-07-19 10:54] LABS: BASOPHILS # (AUTO) 0.1 (0.0-0.1); BASOPHILS % 0.8 % (0.0-1.0); EOSINOPHILS # (AUTO) 0.2 (0.0-0.4); HEMOGLOBIN 15.8 g/dL (14.0-18.0); LYMPHOCYTES % 13.6 % (18.0-39.1); MEAN CORPUSCULAR HEMOGLOBIN 31.3 pg (28-32); MEAN CORPUSCULAR HGB CONC 34.3 g/dL (31-35); MEAN CORPUSCULAR VOLUME 91.1 fL (81-99); MONOCYTES # (AUTO) 0.7 (0.2-0.8); MONOCYTES % 8.8 % (4.4-11.3); NEUTROPHILS # (AUTO) 5.7 (2.1-6.9); NEUTROPHILS % 74.4 % (38.7-80.0); PLATELET COUNT 212 x10e3/uL (140-360); RED BLOOD COUNT 5.05 x10e6/uL (4.3-5.7); RED CELL DISTRIBUTION WIDTH 13.2 % (11.7-14.4)
[2022-07-19 11:38] LABS: ANION GAP 18.4 mmol/L (8-16); CALCIUM 9.1 mg/dL (8.4-10.2); CREATININE, SERUM 0.77 mg/dL (0.72-1.25); POTASSIUM 3.4 mmol/L (3.5-5.1)
[2022-07-19] MEDS: POTASSIUM CHLORIDE 20 MEQ TAB CR PO PRN (13:27)
[2022-07-20] VITALS (19 sets, daily range): BP systolic 113–170; BP diastolic 66–113; PULSE 76–101; RESP 13–21; TEMP 97.7–98; O2SAT 87–97
[2022-07-20] MEDS: SODIUM CHLORIDE 0.9% 1000ML 1,000 ML IV SCH (01:15)
[2022-07-20 06:08] LABS: ALBUMIN 2.9 g/dL (3.5-5.0); ANION GAP 15.3 mmol/L (8-16); CALCIUM 8.5 mg/dL (8.4-10.2); CREATININE, SERUM 0.66 mg/dL (0.72-1.25); POTASSIUM 3.3 mmol/L (3.5-5.1)
[2022-07-20] MEDS: ALBUTEROL/IPRATROPIUM 3 ML NEB NEB PRN ×2 (07:14→13:21)
[2022-07-20] MEDS: NICOTINE 21 MG/EA PATCH TOP SCH (09:19)
[2022-07-20] MEDS: POTASSIUM CHLORIDE 20 MEQ TAB CR PO PRN (09:20)
[2022-07-20] MEDS ORDERED: HYDROCODONE/APAP 5MG-325MG TAB PO PRN (12:30)
[2022-07-20] MEDS ORDERED: TROLAMINE SALICYLATE 35.4 GM CR TP PRN (13:30)
[2022-07-21] VITALS (11 sets, daily range): BP systolic 137–164; BP diastolic 88–99; PULSE 86–108; RESP 16–22; TEMP 97.5–98.4; O2SAT 92–100
[2022-07-21] MEDS: NICOTINE 21 MG/EA PATCH TOP SCH (08:38)
[2022-07-21] MEDS: ALBUTEROL/IPRATROPIUM 3 ML NEB NEB PRN (08:53)
[2022-07-21] MEDS: ALBUTEROL/IPRATROPIUM 3 ML NEB NEB SCH ×2 (13:00→20:15)
[2022-07-21] MEDS: BUDESONIDE/FORMOTEROL FUMARATE 80/4.5MCG 6.9 GM INH AEROSOL IH SCH (20:56)
[2022-07-22] VITALS (12 sets, daily range): BP systolic 130–151; BP diastolic 65–93; PULSE 85–103; RESP 17–20; TEMP 97.5–98.6; O2SAT 92–99
[2022-07-22] MEDS: ALBUTEROL/IPRATROPIUM 3 ML NEB NEB SCH ×4 (01:00→19:25)
[2022-07-22] MEDS: BUDESONIDE/FORMOTEROL FUMARATE 80/4.5MCG 6.9 GM INH AEROSOL IH SCH ×2 (08:53→19:40)
[2022-07-22] MEDS: NICOTINE 21 MG/EA PATCH TOP SCH (09:00)
[2022-07-23] VITALS (8 sets, daily range): BP systolic 118–156; BP diastolic 63–87; PULSE 79–92; RESP 16–20; TEMP 97.8–98.7; O2SAT 92–100
[2022-07-23] MEDS: ALBUTEROL/IPRATROPIUM 3 ML NEB NEB SCH ×3 (01:00→12:55)
[2022-07-23] MEDS: BUDESONIDE/FORMOTEROL FUMARATE 80/4.5MCG 6.9 GM INH AEROSOL IH SCH (07:00)
[2022-07-23] MEDS: NICOTINE 21 MG/EA PATCH TOP SCH (08:35)
[2022-07-23] MEDS ORDERED: ONDANSETRON HCL 4 MG ORAL DISINTEGRATING TAB PO PRN (14:30)
[2022-07-23] MEDS ORDERED: PANTOPRAZOLE SOD 40 MG TABEC PO SCH (16:00)
== END 2022-07-23 14:23 | disposition home or self-care (01) | DRG 334 ==
LOC: OR 09:00 → PACU V 13:38 → ICU 15:26 → MED/SURG 07-20 16:48
PROVIDERS: ADMIT Surgery; ATTEND Surgery
PROC: 0DTP0ZZ Resection of Rectum, Open Approach (ICD-10-PCS; principal; 2022-07-15 10:19)
DX: C18.7 Malignant neoplasm of sigmoid colon (principal); J44.9 Chronic obstructive pulmonary disease, unspecified; F03.90 Unspecified dementia, unspecified severity, without behavioral disturbance, psychotic disturbance, mood disturbance, and anxiety; F17.200 Nicotine dependence, unspecified, uncomplicated; Z20.822 Contact with and (suspected) exposure to COVID-19
CPT/HCPCS: 0223U; 36415; 71045; 80048; 80053; 85025; 88305; 88309; 93005; 94640; 94664; 94799; 99252; J0171; J0694; J1100; J1170; J1885; J2001; J2405; J2543; J2710; J2795; J7030

== ENCOUNTER → 2022-08-09 | Day surgery (SDC) | payer MEDICARE ==
[~2022-08-09] MED LIST changes: +ALBUTEROL SULFATE HFA 8GM INHALATION AEROSOL INH ONE; +BUPIVACAINE 0.25% 30ML SDV ONE; +DEXAMETHASONE SOD PHOS INJ 4 MG/ML SDV ONE; +FENTANYL CITRATE/PF 100MCG/2 ML INJ ONE; +GLYCOPYRROLATE INJ 0.2 MG/ML VIAL ONE; +HEPARIN SOD (PORCINE) 5,000 UNIT/ML VIAL ONE; +HYDROCODONE/APAP 7.5MG-325MG 1 EA TAB ONE; +LIDOCAINE HCL 2% LOCAL INJ 5 ML SDV VIAL INJ ONE; +MIDAZOLAM HCL 2 MG/2 ML VIAL ONE; +NICOTINE PATCH TD; +ONDANSETRON HCL INJ 2MG/ML 2ML 2 MG/ML VIAL ONE; +POVIDONE IODINE 0.05% 0.05 % ML PO ONE; +PROPOFOL IV EMULSION 10 MG/ML 20 ML VIAL ONE; +SODIUM CHLORIDE 0.9% 500ML 500 ML ONE
[2022-08-09 11:18] VITALS: TEMP 97.1
[2022-08-09 12:35] VITALS: BP 166/80; PULSE 63; RESP 16; O2SAT 95
== END | disposition home or self-care (01) ==
LOC: OR 07:30
PROVIDERS: ATTEND Surgery
DX: C18.9 Malignant neoplasm of colon, unspecified (principal); J44.9 Chronic obstructive pulmonary disease, unspecified; E78.5 Hyperlipidemia, unspecified; F17.200 Nicotine dependence, unspecified, uncomplicated; Z79.899 Other long term (current) drug therapy
CPT/HCPCS: 36561; 76000; C1751; J1100; J1644; J2001; J2250; J2405; J2704; J3010; J7040; J7121

== ENCOUNTER 2022-08-25 12:50 | Outpatient (RCR) | payer MEDICARE ==
[~2022-08-25 12:50] MED LIST changes: -ALBUTEROL SULFATE HFA 8GM INHALATION AEROSOL INH ONE; -BUPIVACAINE 0.25% 30ML SDV ONE; -DEXAMETHASONE SOD PHOS INJ 4 MG/ML SDV ONE; -FENTANYL CITRATE/PF 100MCG/2 ML INJ ONE; -GLYCOPYRROLATE INJ 0.2 MG/ML VIAL ONE; -HEPARIN SOD (PORCINE) 5,000 UNIT/ML VIAL ONE; -HYDROCODONE/APAP 7.5MG-325MG 1 EA TAB ONE; -LACTATED RINGER'S 1,000 ML ONE; -LIDOCAINE HCL 2% LOCAL INJ 5 ML SDV VIAL INJ ONE; -MIDAZOLAM HCL 2 MG/2 ML VIAL ONE; -ONDANSETRON HCL INJ 2MG/ML 2ML 2 MG/ML VIAL ONE; -POVIDONE IODINE 0.05% 0.05 % ML PO ONE; -PROPOFOL IV EMULSION 10 MG/ML 20 ML VIAL ONE; -SODIUM CHLORIDE 0.9% 500ML 500 ML ONE
== END 2022-08-27 ==
LOC: PT 12:50
PROVIDERS: ATTEND Specialist
DX: S86.912D Strain of unspecified muscle(s) and tendon(s) at lower leg level, left leg, subsequent encounter (principal); M62.81 Muscle weakness (generalized); R26.2 Difficulty in walking, not elsewhere classified; Z91.81 History of falling

== ENCOUNTER → 2024-11-01 | Day surgery (SDC) | payer MEDICARE ==
[2024-10-24 09:43] LABS: BASOPHILS % 0.7 % (0.0-1.0); EOSINOPHILS % 1.6 % (0.0-6.0); LYMPHOCYTES % 20.6 % (18.0-39.1); MONOCYTES % 7.9 % (4.4-11.3); NEUTROPHILS % 69.0 % (38.7-80.0); RED CELL DISTRIBUTION WIDTH 13.1 % (11.7-14.4)
[~2024-11-01] MED LIST changes: +ARICEPT10 MG PO; +GLUCAGON FOR INJ 1 MG VIAL ONE; +HYOSCYAMINE SULFATE 0.5 MG/ML INJ ONE; +LACTATED RINGER'S 1,000 ML ONE; +LIDOCAINE HCL 2% LOCAL INJ 5 ML SDV VIAL INJ ONE; +MEMANTINE HCL10 MG PO; +PROPOFOL IV EMULSION 10 MG/ML 20 ML VIAL ONE; +WIXELA 250-501 EACH INH
[2024-11-01 08:18] VITALS: TEMP 97
[2024-11-01 08:45] VITALS: BP 122/93; PULSE 60; RESP 15; O2SAT 98
== END | disposition home or self-care (01) ==
LOC: OR 05:47
PROVIDERS: ATTEND Internal Medicine Gastroenterology
DX: Z08 Encounter for follow-up examination after completed treatment for malignant neoplasm (principal); Z85.038 Personal history of other malignant neoplasm of large intestine; D12.4 Benign neoplasm of descending colon; D12.5 Benign neoplasm of sigmoid colon; D12.3 Benign neoplasm of transverse colon; K63.5 Polyp of colon; K64.8 Other hemorrhoids; Z98.0 Intestinal bypass and anastomosis status; J44.9 Chronic obstructive pulmonary disease, unspecified; F17.200 Nicotine dependence, unspecified, uncomplicated
CPT/HCPCS: 36415; 45385; 85025; 88305; 88342; 93005; J1610; J1980; J2003; J2704; J7121; 45378; 45380